=== PATIENT | female | born 1975 | race Two or more races ===

== ENCOUNTER 2024-09-05 07:50 | Day surgery (SDC) | payer MEDICAID, SELFPAY ==
[2024-09-04 09:50] VITALS: BMI 27.1
[2024-09-04 11:38] LABS: Basophils # (Auto) 0.0 Thou/mm3 (0.0-0.2); Basophils % (Auto) 1 % (0-2.5); Eosinophils # (Auto) 0.2 Thou/mm3 (0.0-0.5); Eosinophils % (Auto) 3 % (0-10); Hematocrit 36.0 % (36.0-46.0); Hemoglobin 12.1 g/dL (12.0-16.0); Immature Granulocytes Auto 0.02 Thou/mm3 (0.00-0.00); Lymphocytes # (Auto) 2.0 Thou/mm3 (1.0-4.8); Lymphocytes % (Auto) 39 % (10-50); Mean Corpuscular HGB Conc 33.6 g/dl (31.0-37.0); Mean Corpuscular Hemoglobin 29.4 pg (25.0-35.0); Mean Corpuscular Volume 87 fL (80-100); Monocytes # (Auto) 0.3 Thou/mm3 (0.0-0.8); Monocytes % (Auto) 7 % (0-12); Neutrophils # (Auto) 2.5 Thou/mm3 (1.8-7.7); Neutrophils % (Auto) 50 % (37-80); Nucleated Red Blood Cell # 0.00 Thou/mm3 (0.00-0.00); Nucleated Red Blood Cell % 0 /100 WBC (0); Platelet Count 200 Thou/mm3 (140-440); RDW Standard Deviation 42.7 fL (36.4-46.3); Red Blood Count 4.12 Miln/mm3 (4.00-5.20); White Blood Count 5.1 Thou/mm3 (3.6-11.0)
[2024-09-04 11:44] LABS: INR 1.0 (0.9-1.3); Partial Thromboplastin Time 26.2 Seconds (22.0-36.0); Prothrombin Time 10.7 Seconds (9.0-12.2)
[2024-09-04 11:47] LABS: HCG,Qualitative Serum Negative
[2024-09-04 11:50] LABS: Alanine Aminotransferase 19 U/L (10-49); Albumin, Serum 4.9 gm/dL (3.5-5.0); Albumin/Globulin Ratio 2.3 (1.2-2.2); Alkaline Phosphatase 70 U/L (46-116); Anion Gap 8 (7-16); Aspartate Amino Transferase 20 U/L (0-34); BUN/Creatinine Ratio 20 Ratio (12-20); Bilirubin,Total 0.5 mg/dL (0.3-1.2); Blood Urea Nitrogen 16 mg/dL (9-23); Calcium 10.2 mg/dL (8.3-10.6); Calcium (Corrected) 10.2 mg/dL (8.5-10.1); Carbon Dioxide 25.2 mMol/L (20.0-31.0); Chloride 105 mMol/L (98-107); Creatinine (Component) 0.8 mg/dL (0.6-1.3); Estimated Creatinine Clearance 68.9 mL/min (>60); Globulin 2.1 gm/dL (2.3-3.5); Glucose 101 mg/dL (74-106); Osmolality,Calculated 276 (275-295); Potassium 4.7 mMol/L (3.4-5.1); Sodium 138 mMol/L (136-145); Total Protein 7.0 gm/dL (5.7-8.2); eGFR > 60 See Note
[2024-09-05] VITALS (8 sets, daily range): BP systolic 111–139; BP diastolic 77–86; PULSE 74–97; RESP 12–17; TEMP 36.6–36.7; O2SAT 98–100; BMI 26.8
--- NOTE | 2024-09-05 10:46 | ESOP_ITS ---
Date of Procedure 09/05/24 Pre Op Diagnosis Symptomatic umbilical hernia Post Op Diagnosis Same Procedure Repair of the umbilical hernia with primary closure. Findings Patient had a small defect measuring about a centimeter in length containing omentum Procedure Description After the patient was brought to the operating room endotracheal anesthesia was given. Then abdomen was prepped with ChloraPrep solution and draped in a sterile manner. Timeout was performed. Curved incision was made below the umbilicus and injected half percent Marcaine to make the incision. Subcutaneous tissue was incised and the skin was retracted using Abhishek retractors. Then the fascia was reached and I found out that the patient had a small defect which was allowing a small portion of preperitoneal fat. The preperitoneal fat was clamped with Fleming clamp and suture-ligated with 2-0 chromic. This was then reduced and the defect was assessed and it was barely 1 cm in width. I closed it with 2-0 Prolene with 3 interrupted sutures. Then the subcutaneous tissue was closed with 3-0 plain. The skin was closed with 4-0 Monocryl subcuticular stitch. Dressing was applied with Adaptic and 4 x 4 gauze and patient tolerated the procedure well Anesthesia GETA Pathology / specimen None Estimated Blood Loss 20 Surgeon Annette Epstein MD Surgical Staff Operation Date: 09/05/24 10:15 Case Staff Anesthesiologist: Marcus Lewis RNmarket research specialist: Gifty Stewart
--- NOTE | 2024-09-05 11:32 | SUR.PHASEI ---
1049: Pt received in [facility] via gurney. Report from Na BELLAMY and Dr. Lewis. Pt obtunded. Oral airway in place. Resp even, unlabored. VS stable. Dressing to mid abdomen dry, clean, intact. 1100: Oral airway dc'd. Resp even, unlabored. 1113: Pt has been resting with no complaints voiced. Resp even, unlabored. VS stable. Dressing remains dry, clean, intact. Denies pain.
--- NOTE | 2024-09-05 13:23 | SUR.PHASEII ---
1135: Pt more awake, alert. Resp even, unlabored. VS stable. Dressing dry, clean, intact. Denies pain. Pt sitting up tolerating po fluids with no difficulty swallowing and no n/v. 1155: Pt fully awake, oriented x3. VS stable. Dressing unchanged. Pt dressed and assisted to transport chair. Pt states she has little pain with movement. Ambulation steady. Awaiting transportation. 1230: Transportation available. Pt and daughter stated understanding of discharge instructions. Pt discharged from [facility] in stable condition.
== END 2024-09-05 12:30 | disposition home or self-care (01) ==
PROVIDERS: Anesthesiology; PCP Internal Medicine; Referring Provider Surgery; Visit Provider Surgery
PROC: (CPT 49591; principal; 2024-09-05 10:00)
DX: K42.9 Umbilical hernia without obstruction or gangrene (principal); Z88.5 Allergy status to narcotic agent
CPT/HCPCS: 49591; 36415; 80053; 84703; 85025; 85610; 85730; A4217; A4649; J0131; J1100; J2704; J2765; J3010; J3490; A9270